=== PATIENT | female | born 1970 | race Native Hawaiian/Other Pacific Islander ===

== ENCOUNTER 2016-10-11 15:20 | Emergency (ER) | payer OTHER ==
[~2016-10-11] VITALS: Ht 152.4 cm; Wt 77.1 kg
[2016-10-11 15:52] VITALS: TEMP 98.3
[2016-10-11 16:49] LABS: PLATELET COUNT 272 K/uL (152-353)
[2016-10-11 17:00] VITALS: BP 121/57
[2016-10-11 17:04] LABS: POTASSIUM 3.4 mmol/L (3.6-5.2); SODIUM 136 mmol/L (136-145)
== END 2016-10-11 18:29 | disposition home or self-care (01) ==
LOC: ED 15:20
PROVIDERS: Emergency Medicine
DX: S29.001A Unspecified injury of muscle and tendon of front wall of thorax, initial encounter (principal); S30.1XXA Contusion of abdominal wall, initial encounter; S93.401A Sprain of unspecified ligament of right ankle, initial encounter; R00.0 Tachycardia, unspecified; W11.XXXA Fall on and from ladder, initial encounter; Y92.098 Other place in other non-institutional residence as the place of occurrence of the external cause
CPT/HCPCS: 36415; 80053; 85027; 93005; 96374; 96375; 99284; J1885; J2270; J2405; Q9963